=== PATIENT | female | born 1975 | race Caucasian/White ===

== ENCOUNTER → 2018-05-07 16:47 | Outpatient (REF) | payer BC, SELFPAY ==
--- NOTE | 2018-05-07 16:00 | PAPFT_PTH ---
PATIENT: Sushma Reed LOC: [facility] U#:[id number] AGE/SX: 49/F ROOM: RE05/07/[address]: Maggie Garcia : 1975 BED: DIS: SPEC #: [id number] RECD: 05/08/18 12:51 STATUS: MILLICENT MENDOZA #: [id number] MARY: 05/07/18 16:[address]: Maggie Garcia DEPT: [facility] Cytology RECD BY: Nadya Fried ENTERED: 05/08/18 12:51 SP TYPE: PAPFT OTHR DR: Anamika Garzon Tissues: 1 - CX/ENDOCX FOR PAP SMEARS Procedures: PAP THIN PREP/UVM Screening Comments: [id number] (VAGINAL HPV SENT TO [facility])
[2018-05-26 20:22] LABS: HPV High Risk type 16, PCR Negative (Negative); HPV High Risk type 18, PCR Negative (Negative); HPV other High Risk types, PCR Positive (Negative); Specimen Source VAGINAL
== END ==
LOC: NCHCN 16:47
PROVIDERS: PCP Nurse Practitioner Family; Visit Provider Nurse Practitioner
DX: Z00.00 Encounter for general adult medical examination without abnormal findings (principal); Z12.4 Encounter for screening for malignant neoplasm of cervix; Z11.51 Encounter for screening for human papillomavirus (HPV)
CPT/HCPCS: 87624; 88142

== ENCOUNTER 2018-07-15 08:09 | Emergency (ER) | payer BC, SELFPAY ==
[2018-07-15 08:11] VITALS: BP 137/81; PULSE 104; RESP 18; TEMP 36.6; O2SAT 98
--- NOTE | 2018-07-15 08:39 | W.ED.GENAD ---
Discharge Plan Disposition Patient Disposition: HOME Discharge Details Chief Complaint: Cellulitis Clinical Impression: Abscess Primary Care Provider: Anamika Garzon ED Provider: Tim Heller Home Meds and New Rx's Prescriptions: New sulfamethoxazole-trimethoprim [Bactrim DS] 800-160 mg tablet 1 tab PO BID Qty: 19 RF: 0 Continue insulin glargine [Lantus U-100 Insulin] 100 UNIT/1 ML solution 75 unit SQ HS RF: 0 insulin aspart U-100 [Novolog PenFill U-100 Insulin] 100 UNIT/1 ML cartridge 6 - 30 unit SQ DIRECTED RF: 0 bupropion HCl [Wellbutrin XL] 300 MG tablet extended release 24 hr 300 mg PO DAILY RF: 0 lorazepam 1 MG tablet 1 mg PO Q6H PRN PRN (Reason: Anxiety) Qty: 10 RF: 0 Discharge Instructions Instructions: Abscess (ED) Additional Instructions: Please monitor your sugars closely and take insulin as prescribed. Take full course of antibiotic as prescribed. Please contact your primary care physician to arrange follow-up. Return to the ER for any worsening or new concerning symptoms. Referrals: Anamika Garzon [Primary Care Provider] - Medical Decision Making 42-year-old female with insulin-dependent diabetes, blood sugars well controlled, here with abscess posterior auricular fold of her right ear. Patient provided informed consent to incision and drainage. See procedure note. Given comorbidities and risk for progressive infection, I will start the patient on Bactrim. Usual and customary discharge instructions were provided the patient and she verbalized understanding of discharge instructions without questions. HPI General Mode of arrival: ambulatory. Date/Time Provider Initiated Documentation: 07/15/18 08:15. Limitations to Documentation: no limitations. Information obtained by: patient. HPI Narrative: 42-year-old female with insulin-dependent diabetes presents with chief complaint of swelling and pain behind her right ear. Symptoms started 3 days ago and have persisted. Now worse. Pain is moderate and worse on palpation. No other modifiers. No associated fever. Blood sugars have been well controlled and was in the 100s earlier today. Patient does note that she had an apple prior to coming to the emergency department today. She has no other skin lesions. She has had an abscess on her arm in the remote past. Related Data Home Medications Medication Instructions Recorded Confirmed insulin aspart U-100 [Novolog 6 - 30 unit SQ DIRECTED 05/09/13 07/15/18 PenFill U-100 Insulin] insulin glargine [Lantus U-100 75 unit SQ HS 05/09/13 07/15/18 Insulin] bupropion HCl [Wellbutrin XL] 300 mg PO DAILY 01/31/18 07/15/18 lorazepam 1 mg PO Q6H PRN PRN #10 tab 01/31/18 07/15/18 sulfamethoxazole-trimethoprim 1 tab PO BID #19 tab 07/15/18 [Bactrim DS] Previous Rx's Medication Instructions Recorded lorazepam 1 mg PO Q6H PRN PRN #10 tab 01/31/18 sulfamethoxazole-trimethoprim 1 tab PO BID #19 tab 07/15/18 [Bactrim DS] Allergies Allergy/AdvReac Type Severity Reaction Status Date / Time No Known Allergies Allergy Unverified 01/31/18 11:04 General Stated Complaint: Cellulitis SYBIL: 4 Review of Systems Constitutional Reports as per HPI Integumentary/Breasts Reports as per HPI [facility] Medical History Anxiety Depressed Diabetes Hyperlipemia Hypertension Social History Smoking/Tobacco Use Status: Former Tobacco Use Exam Const General: cooperative and no acute distress HENMT Head: normocephalic and atraumatic Mouth: moist mucous membranes Eyes Conjunctivae: normal conjunctivae Sclera: normal sclerae EOM: EOM intact bilaterally Neck Neck: trachea midline and supple Resp Auscultation: clear to auscultation bilaterally, no rales, no rhonchi and no wheezes Cardio Jugular venous pressure: no JVD Rate: regular rate and not tachycardic Rhythm: regular rhythm Skin General skin exam: other (fluctuant 1cm abscess post auricular fold right ear with no cellulitis) Neuro General: alert, awake, oriented x3 and tone normal Extrem General: no edema Psych Appearance: grossly normal Mental Status: mental status grossly normal Course Vital Signs Temperature 36.6 C 07/15/18 08:11 Pulse 104 H 07/15/18 08:11 Respiratory Rate 18 07/15/18 08:11 Blood Pressure 137/81 07/15/18 08:11 Pulse Oximetry 98 07/15/18 08:11 Temperature 36.6 C 07/15/18 08:11 Temperature Source Skin 07/15/18 08:11 Pulse 104 H 07/15/18 08:11 Respiratory Rate 18 07/15/18 08:11 Respiratory Effort 07/15/18 08:15 Blood Pressure 137/81 07/15/18 08:11 Blood Pressure Position Sitting 07/15/18 08:11 Pulse Oximetry 98 07/15/18 08:11 Oxygen Delivery Method Room Air 07/15/18 08:11 Oxygen Flow Rate 0 07/15/18 08:11 Pain Level 4 07/15/18 08:11 Comment 07/15/18 08:11 Procedures Abscess I/D Site: Other (behind right ear) Side (if applicable): Right Local Anesthetic: Other Anesthetic (LET topical) Amount of fluid expressed (mL): 1 Packing used?: None Complications: Other (none)
[2018-07-15] MEDS: Sulfameth/Trimeth DS TAB 1 TAB PO (09:31)
--- NOTE | 2018-07-15 09:33 | ED.GENADUL_ITS ---
Discharge Plan Disposition Patient Disposition: HOME Discharge Details Chief Complaint: Cellulitis Clinical Impression: Abscess Primary Care Provider: Anamika Garzon ED Provider: Tim Heller Home Meds and New Rx's Prescriptions: New sulfamethoxazole-trimethoprim [Bactrim DS] 800-160 mg tablet 1 tab PO BID Qty: 19 RF: 0 Continue insulin glargine [Lantus U-100 Insulin] 100 UNIT/1 ML solution 75 unit SQ HS RF: 0 insulin aspart U-100 [Novolog PenFill U-100 Insulin] 100 UNIT/1 ML cartridge 6 - 30 unit SQ DIRECTED RF: 0 bupropion HCl [Wellbutrin XL] 300 MG tablet extended release 24 hr 300 mg PO DAILY RF: 0 lorazepam 1 MG tablet 1 mg PO Q6H PRN PRN (Reason: Anxiety) Qty: 10 RF: 0 Discharge Instructions Instructions: Abscess (ED) Additional Instructions: Please monitor your sugars closely and take insulin as prescribed. Take full course of antibiotic as prescribed. Please contact your primary care physician to arrange follow-up. Return to the ER for any worsening or new concerning symptoms. Referrals: Anamika Garzon [Primary Care Provider] - Medical Decision Making 42-year-old female with insulin-dependent diabetes, blood sugars well controlled , here with abscess posterior auricular fold of her right ear. Patient provided informed consent to incision and drainage. See procedure note. Given comorbidities and risk for progressive infection, I will start the patient on Bactrim. Usual and customary discharge instructions were provided the patient and she verbalized understanding of discharge instructions without questions. HPI General Mode of arrival: ambulatory . Date/Time Provider Initiated Documentation: 07/15/18 08:15 . Limitations to Documentation: no limitations . Information obtained by: patient . HPI Narrative: 42-year-old female with insulin-dependent diabetes presents with chief complaint of swelling and pain behind her right ear. Symptoms started 3 days ago and have persisted. Now worse. Pain is moderate and worse on palpation. No other modifiers. No associated fever. Blood sugars have been well controlled and was in the 100s earlier today. Patient does note that she had an apple prior to coming to the emergency department today. She has no other skin lesions. She has had an abscess on her arm in the remote past. Related Data Home Medications Medication Instructions Recorded Confirmed insulin aspart U-100 [Novolog 6 - 30 unit SQ DIRECTED 05/09/13 07/15/18 PenFill U-100 Insulin] insulin glargine [Lantus U-100 75 unit SQ HS 05/09/13 07/15/18 Insulin] bupropion HCl [Wellbutrin XL] 300 mg PO DAILY 01/31/18 07/15/18 lorazepam 1 mg PO Q6H PRN PRN #10 tab 01/31/18 07/15/18 sulfamethoxazole-trimethoprim 1 tab PO BID #19 tab 07/15/18 [Bactrim DS] Previous Rx's Medication Instructions Recorded lorazepam 1 mg PO Q6H PRN PRN #10 tab 01/31/18 sulfamethoxazole-trimethoprim 1 tab PO BID #19 tab 07/15/18 [Bactrim DS] Allergies Allergy/AdvReac Type Severity Reaction Status Date / Time No Known Allergies Allergy Unverified 01/31/18 11:04 General Stated Complaint: Cellulitis SYBIL: 4 Review of Systems Constitutional Reports as per HPI Integumentary/Breasts Reports as per HPI [facility] Medical History Anxiety Depressed Diabetes Hyperlipemia Hypertension Social History Smoking/Tobacco Use Status: Former Tobacco Use Exam Const General: cooperative and no acute distress HENMT Head: normocephalic and atraumatic Mouth: moist mucous membranes Eyes Conjunctivae: normal conjunctivae Sclera: normal sclerae EOM: EOM intact bilaterally Neck Neck: trachea midline and supple Resp Auscultation: clear to auscultation bilaterally, no rales, no rhonchi and no wheezes Cardio Jugular venous pressure: no JVD Rate: regular rate and not tachycardic Rhythm: regular rhythm Skin General skin exam: other (fluctuant 1cm abscess post auricular fold right ear with no cellulitis) Neuro General: alert, awake, oriented x3 and tone normal Extrem General: no edema Psych Appearance: grossly normal Mental Status: mental status grossly normal Course Vital Signs Temperature 36.6 C 07/15/18 08:11 Pulse 104 H 07/15/18 08:11 Respiratory Rate 18 07/15/18 08:11 Blood Pressure 137/81 07/15/18 08:11 Pulse Oximetry 98 07/15/18 08:11 Temperature 36.6 C 07/15/18 08:11 Temperature Source Skin 07/15/18 08:11 Pulse 104 H 07/15/18 08:11 Respiratory Rate 18 07/15/18 08:11 Respiratory Effort 07/15/18 08:15 Blood Pressure 137/81 07/15/18 08:11 Blood Pressure Position Sitting 07/15/18 08:11 Pulse Oximetry 98 07/15/18 08:11 Oxygen Delivery Method Room Air 07/15/18 08:11 Oxygen Flow Rate 0 07/15/18 08:11 Pain Level 4 07/15/18 08:11 Comment 07/15/18 08:11 Procedures Abscess I/D Site: Other (behind right ear) Side (if applicable): Right Local Anesthetic: Other Anesthetic (LET topical) Amount of fluid expressed (mL): 1 Packing used?: None Complications: Other (none)
== END 2018-07-15 09:38 | disposition home or self-care (01) ==
PROVIDERS: Emergency Provider Student in an Organized Health Care Education/Training Program; PCP Nurse Practitioner Family
DX: H60.01 Abscess of right external ear (principal); E11.9 Type 2 diabetes mellitus without complications; Z79.4 Long term (current) use of insulin; I10 Essential (primary) hypertension
CPT/HCPCS: 10060; 36416; 82962

== ENCOUNTER 2019-01-20 09:25 | Outpatient (REF) | payer OTHER, SELFPAY ==
[2019-01-20 13:07] LABS: ALT 28 U/L (12-78); AST 16 U/L (15-37); Anion Gap 11.3 mmol/L (3-11); BUN 9 mg/dL (7-18); CO2 27.7 mmol/L (21.0-32.0); CREATININE 0.69 mg/dL (0.55-1.02); Calcium 9.7 mg/dL (8.5-10.1); Chloride 103 mmol/L (98-107); Cholesterol 182 mg/dL (50-200); Glucose 163 mg/dL (70-100); HDL Cholesterol 43 mg/dL (40-60); LDL CHOLESTEROL 116 mg/dL (<100); Potassium 4.2 mmol/L (3.5-5.1); Sodium 142 mmol/L (136-145); Triglyceride 97 mg/dL (30-150)
== END 2019-01-20 09:45 ==
LOC: NCHCN 09:25
PROVIDERS: PCP Nurse Practitioner Family; Visit Provider Nurse Practitioner Family
DX: E78.5 Hyperlipidemia, unspecified (principal); E11.9 Type 2 diabetes mellitus without complications
CPT/HCPCS: 80048; 80061; 83721; 84450; 84460

== ENCOUNTER 2021-01-06 14:53 | Outpatient (REF) | payer OTHER, SELFPAY ==
--- NOTE | 2021-01-06 14:00 | PAPFT_PTH ---
PATIENT: Sushma Reed LOC: [facility]#:[id number] AGE/SX: 45/F ROOM: RE01/06/[address]: Aleksandr Ramírez : 1975 BED: DIS: 01/06/2021 SPEC #: [id number] RECD: 01/09/21 12:55 STATUS: MILLICENT REHe #: [id number] MARY: 01/06/21 14:[address]: Aleksandr Ramírez DEPT: [facility] Cytology RECD BY: Nadya Fried ENTERED: 01/09/21 12:55 SP TYPE: PAPFT OTHR DR: Anamika Garzon Tissues: 1 - CX/ENDOCX FOR PAP SMEARS Procedures: PAP THIN PREP/UVM Screening HPV DNA PROBE Comments: [id number]
== END 2021-01-06 14:54 | disposition home or self-care (01) ==
LOC: NCHCN 14:53
PROVIDERS: PCP Nurse Practitioner Family; Visit Provider Family Medicine
DX: Z12.72 Encounter for screening for malignant neoplasm of vagina (principal); Z11.51 Encounter for screening for human papillomavirus (HPV); Z86.001 Personal history of in-situ neoplasm of cervix uteri
CPT/HCPCS: 88142; 87624

== ENCOUNTER 2021-04-04 18:33 | Outpatient (REF) | payer MEDICAID, SELFPAY ==
[2021-04-04 22:04] LABS: Anion Gap 12.4 mmol/L (3-11); BUN 12 mg/dL (7-18); CO2 23.6 mmol/L (21.0-32.0); CREATININE 0.6 mg/dL (0.55-1.02); Calcium 9.3 mg/dL (8.5-10.1); Chloride 100 mmol/L (98-107); Glucose 279 mg/dL (74-106); Sodium 136 mmol/L (136-145)
== END 2021-04-04 18:34 | disposition home or self-care (01) ==
LOC: NCHCN 18:33
PROVIDERS: PCP Nurse Practitioner Family; Referring Provider Nurse Practitioner Family; Visit Provider Nurse Practitioner Family
DX: E78.5 Hyperlipidemia, unspecified (principal)
CPT/HCPCS: 80048

== ENCOUNTER 2022-07-20 15:35 | Outpatient (REF) | payer MEDICAID, SELFPAY ==
[2022-07-20 15:31] LABS: ALT 22 U/L (14-59); AST 17 U/L (15-37); Albumin 4.1 g/dL (3.4-5.0); Alkaline Phosphatase 65 U/L (46-116); Anion Gap 5.9 mmol/L (3-11); BUN 13 mg/dL (7-18); Bilirubin, Total 0.9 mg/dL (0.2-1.0); CO2 28.1 mmol/L (21.0-32.0); CREATININE 0.7 mg/dL (0.55-1.02); Calcium 9.6 mg/dL (8.5-10.1); Chloride 101 mmol/L (98-107); Glucose 125 mg/dL (74-106); Potassium 4.2 mmol/L (3.5-5.1); Sodium 135 mmol/L (136-145)
[2022-07-20 15:41] LABS: HGB 14.8 g/dL (11.2-15.7); MCH 30.1 pg (27.0-33.0); MCHC 34.4 % (32.0-36.0); MCV 88 fL (80-95); MPV 10.9 fL (8.0-11.0); Platelet Count 214 10^3/uL (130-400); RBC 4.91 10^6/uL (3.93-5.22); RDW 11.9 % (11.7-14.6); RDW-SD 38.5 fL; WBC 8.79 10^3/uL (4.4-10.8)
== END 2022-07-20 15:36 | disposition home or self-care (01) ==
LOC: NCHCN 15:35
PROVIDERS: PCP Nurse Practitioner Family; Visit Provider Family Medicine
DX: I10 Essential (primary) hypertension (principal); E11.9 Type 2 diabetes mellitus without complications; E66.9 Obesity, unspecified
CPT/HCPCS: 80053; 85027

== ENCOUNTER 2022-11-08 17:40 | Outpatient (REF) | payer MEDICAID, SELFPAY | END 2022-11-08 17:41 | disposition home or self-care (01) | LOC: LBN 17:40 | PROVIDERS: PCP Nurse Practitioner Family; Visit Provider Obstetrics & Gynecology | DX: N94.9 Unspecified condition associated with female genital organs and menstrual cycle (principal) | CPT/HCPCS: 87480; 87510; 87660 ==

== ENCOUNTER 2023-03-20 09:34 | Outpatient (REF) | payer MEDICAID, SELFPAY ==
[2023-03-20 14:51] LABS: HCT 43.2 % (36.0-46.0); HGB 15.1 g/dL (11.2-15.7); MCV 86 fL (80-95); MPV 11.1 fL (8.0-11.0); Platelet Count 226 10^3/uL (130-400); RBC 5.03 10^6/uL (3.93-5.22); RDW 12.5 % (11.7-14.6); RDW-SD 39.4 fL
[2023-03-20 15:02] LABS: ALT 21 U/L (14-59); AST 10 U/L (15-37); Alkaline Phosphatase 76 U/L (46-116); Anion Gap 9.7 mmol/L (3-11); BUN 14 mg/dL (7-18); Bilirubin, Total 0.8 mg/dL (0.2-1.0); CO2 26.3 mmol/L (21.0-32.0); CREATININE 0.7 mg/dL (0.55-1.02); Calcium 9.2 mg/dL (8.5-10.1); Calculated LDL 114 mg/dL (<100); Chloride 102 mmol/L (98-107); Cholesterol 189 mg/dL (<200); Estimated GFR 108.62 (mL/min/1.73m2); Glucose 197 mg/dL (74-106); HDL Cholesterol 55 mg/dL (40-60); Potassium 4.2 mmol/L (3.5-5.1); Sodium 138 mmol/L (136-145); Total Protein 7.6 g/dL (6.4-8.2); Triglyceride 104 mg/dL (<150)
== END 2023-03-20 09:35 | disposition home or self-care (01) ==
LOC: NCHCN 09:34
PROVIDERS: PCP Nurse Practitioner Family; Visit Provider Nurse Practitioner Family
DX: I10 Essential (primary) hypertension (principal); E78.5 Hyperlipidemia, unspecified; E11.9 Type 2 diabetes mellitus without complications
CPT/HCPCS: 80053; 80061; 85027; 82728; 83540

== ENCOUNTER 2024-03-03 19:58 | Outpatient (REF) | payer OTHER, SELFPAY | END 2024-03-03 19:59 | disposition home or self-care (01) | LOC: LBN 19:58 | PROVIDERS: PCP Nurse Practitioner Family; Visit Provider Physician Assistant | DX: L98.8 Other specified disorders of the skin and subcutaneous tissue (principal); L02.31 Cutaneous abscess of buttock | CPT/HCPCS: 87070; 87205 ==

== ENCOUNTER 2024-04-15 15:56 | Outpatient (REF) | payer OTHER, SELFPAY ==
[2024-04-15 16:06] LABS: HCT 41.9 % (36.0-46.0); HGB 14.3 g/dL (11.2-15.7); MCH 29.7 pg (27.0-33.0); MCHC 34.1 % (32.0-36.0); MCV 87 fL (80-95); MPV 11.1 fL (8.0-11.0); Platelet Count 199 10^3/uL (130-400); RBC 4.81 10^6/uL (3.93-5.22); RDW 12.8 % (11.7-14.6); RDW-SD 40.5 fL; WBC 8.26 10^3/uL (4.4-10.8)
[2024-04-15 16:39] LABS: ALT 31 U/L (14-59); AST 18 U/L (15-37); Albumin 3.8 g/dL (3.4-5.0); Alkaline Phosphatase 82 U/L (46-116); BUN 11 mg/dL (7-18); CREATININE 0.7 mg/dL (0.55-1.02); Calcium 9.5 mg/dL (8.5-10.1); Calculated LDL 105 mg/dL (<100); Chloride 104 mmol/L (98-107); Cholesterol 184 mg/dL (<200); Estimated GFR 107.95 (mL/min/1.73m2); Glucose 187 mg/dL (74-106); HDL Cholesterol 57 mg/dL (40-60); Potassium 4.2 mmol/L (3.5-5.1); Sodium 141 mmol/L (136-145); Total Protein 7.1 g/dL (6.4-8.2); Triglyceride 112 mg/dL (<150)
[2024-04-15 17:06] LABS: Microalb ug/mg Crea 7.3 ug/mg Cr
== END 2024-04-15 15:57 | disposition home or self-care (01) ==
LOC: NCHCN 15:56
PROVIDERS: PCP Nurse Practitioner Family; Visit Provider Nurse Practitioner Family
DX: E11.9 Type 2 diabetes mellitus without complications (principal)
CPT/HCPCS: 80053; 80061; 85027; 82043; 82570

== ENCOUNTER 2025-04-14 10:55 | Outpatient (REF) | payer OTHER, MEDICAID, SELFPAY ==
[2025-04-14 15:28] LABS: HCT 38.5 % (36.0-46.0); HGB 13.3 g/dL (11.2-15.7); MCH 30.6 pg (27.0-33.0); MCHC 34.5 % (32.0-36.0); MCV 89 fL (80-95); MPV 10.7 fL (8.0-11.0); Platelet Count 186 10^3/uL (130-400); RBC 4.34 10^6/uL (3.93-5.22); RDW 12.8 % (11.7-14.6); RDW-SD 41.7 fL; WBC 8.90 10^3/uL (4.4-10.8)
[2025-04-14 16:03] LABS: ALT 30 U/L (14-59); AST 20 U/L (15-37); Albumin 3.7 g/dL (3.4-5.0); Alkaline Phosphatase 64 U/L (46-116); Anion Gap 9.3 mmol/L (3-11); BUN 14 mg/dL (7-18); Bilirubin, Total 0.7 mg/dL (0.2-1.0); CO2 24.7 mmol/L (21.0-32.0); Calcium 9.3 mg/dL (8.5-10.1); Calculated LDL 105 mg/dL (<100); Chloride 105 mmol/L (98-107); Cholesterol 176 mg/dL (<200); Estimated GFR 111.34 (mL/min/1.73m2); Glucose 205 mg/dL (74-106); HDL Cholesterol 44 mg/dL (>or=50); Potassium 4.1 mmol/L (3.5-5.1); Sodium 139 mmol/L (136-145); Total Protein 6.8 g/dL (6.4-8.2); Triglyceride 136 mg/dL (<150)
[2025-04-14 16:38] LABS: COMMENT (LAB VIEW ONLY) 124.58 mg/dL; Microalb ug/mg Crea 4.6 ug/mg Cr
== END 2025-04-14 10:56 | disposition home or self-care (01) ==
LOC: NCHCN 10:55
PROVIDERS: PCP Nurse Practitioner Family; Visit Provider Nurse Practitioner Family
DX: E11.9 Type 2 diabetes mellitus without complications (principal); E78.5 Hyperlipidemia, unspecified
CPT/HCPCS: 80053; 80061; 85027; 82043; 82570

== ENCOUNTER 2025-04-29 01:08 | Outpatient (CLI) | payer OTHER, MEDICAID, SELFPAY ==
--- NOTE | 2025-04-29 | DI.MAMMO_ITS ---
Exam(s) MAMMO SCREENING EXAM: MAMMO SCREENING CLINICAL HISTORY: SCREENING MAMMO Z12.31 TECHNIQUE: Mammograms were interpreted according to the usual protocol including computer analysis with CAD system, tomosynthesis and C-view imaging. COMPARISON: Baseline examination. FINDINGS: The breasts are composed of mainly fatty density , Breast Density category A. No suspicious masses or suspicious microcalcifications are seen. No skin thickening or abnormal axillary lymph nodes are seen. Old IMPRESSION: BI-RADS Category 1, Negative mammogram Yearly screening mammography is recommended. Breast Density- Category A - The breast are almost entirely fatty. Breast density Category C or D implies that the patient has dense breast tissue. Dense breast tissue can make it harder to find cancer on a mammogram. Dense breast tissue is also associated with an increased risk of breast cancer. This information about the result of the mammogram report was provided to the patient to raise their awareness. Use this report when you speak with the patient about their risks for breast cancer, which includes their family history. At that time, you may recommend additional screening tests (Ultrasound or MRI) as these tests may add significant information. A negative radiographic report should not delay biopsy if a dominant or clinically suspicious mass is present. Up to ten percent of cancers are not identified on mammography. A negative report may reinforce clinical impression. Adenosis and dense breasts may obscure an underlying neoplasm. False positive reports average 6 to 10%. Patient will receive a letter notifying them of these results.
== END 2025-04-29 01:28 ==
PROVIDERS: PCP Nurse Practitioner Family; Visit Provider Nurse Practitioner Family
DX: Z12.31 Encounter for screening mammogram for malignant neoplasm of breast (principal); R92.313 Mammographic fatty tissue density, bilateral breasts
CPT/HCPCS: 77063; 77067